=== PATIENT | male | born 1975 | race African-American/Black ===

== ENCOUNTER 2024-02-27 11:12 | Emergency (ER) | payer SELFPAY ==
[~2024-02-27] VITALS: Ht 177.8 cm; Wt 74.0 kg
[2024-02-27 11:25] VITALS: O2SAT 100
[2024-02-27] MEDS: ACETAMINOPHEN WITH CODEINE 300/30MG TABLET PO STA (12:23)
[2024-02-27] MEDS: CEFTRIAXONE SODIUM 1G VIAL IM ONE (12:23)
[2024-02-27] MEDS: KETOROLAC 30MG/ML VIAL IM STA (12:24)
[2024-02-27] MEDS: LIDOCAINE HCL/PF 1% 10 MG/ML 5ML VIAL INFIL ONE (12:28)
[2024-02-27] MEDS ORDERED: AMOX1TAB16 MT (13:16)
[2024-02-27] MEDS ORDERED: SULF1TAB48 MT (13:16)
[2024-02-27] MEDS ORDERED: IBUP-2030 MT (13:16)
[2024-02-27 13:21] VITALS: BP 112/68; PULSE 76; RESP 18; TEMP 37.00296; O2SAT 100
== END 2024-02-27 13:31 | disposition home or self-care (01) ==
LOC: ER 12:53
DX: L03.211 Cellulitis of face (principal)
CPT/HCPCS: 96372; 99284; J0696; J1885; J3490; Z7610